=== PATIENT | male | born 1975 | race Hispanic/Latino ===

== ENCOUNTER 2021-08-21 09:33 | Emergency (ER) | payer OTHER ==
[~2021-08-21] VITALS: Ht 180.3 cm; Wt 88.1 kg
[2021-08-21 12:08] LABS: BASO # 0.1 10^3/uL (0.0-0.2); BASO % 1.5 % (0.0-1.0); EOS # 0.2 10^3/uL (0.0-0.5); EOS % 3.4 % (0.0-3.0); HEMATOCRIT 46.9 % (42.0-52.0); HEMOGLOBIN 15.8 g/dl (13.5-17.5); LYMPH # 2.3 10^3/uL (1.5-5.0); MEAN CORPUSCULAR HEMOGLOBIN 30.9 pg (27.0-33.0); MEAN CORPUSCULAR HGB CONC 33.7 g/dl (32.0-36.5); MEAN CORPUSCULAR VOLUME 91.6 fl (80.0-96.0); MONO # 0.5 10^3/uL (0.0-0.8); MONO % 7.6 % (2.0-8.0); NEUTROPHILS # 3.6 10^3/uL (1.5-8.5); NEUTROPHILS % 53.4 % (36.0-66.0); PLATELET COUNT, AUTOMATED 273 10^3/uL (150-450); RED BLOOD COUNT 5.12 10^6/uL (4.30-6.10); WHITE BLOOD COUNT 6.7 10^3/uL (4.0-10.0)
[2021-08-21 12:35] LABS: BLOOD UREA NITROGEN 10 MG/DL (7-18); CALCIUM LEVEL 9.7 MG/DL (8.5-10.1); CARBON DIOXIDE LEVEL 33 MEQ/L (21-32); CHLORIDE LEVEL 104 MEQ/L (98-107); GLOMERULAR FILTRATION RATE > 60.0 (>60); GLUCOSE, FASTING 94 MG/DL (70-100); POTASSIUM SERUM 4.2 MEQ/L (3.5-5.1); SODIUM LEVEL 139 MEQ/L (136-145)
[2021-08-21 12:36] LABS: CK-MB VALUE MASS < 1.0 NG/ML (<3.6); CPK CREATINE PHOSPHOKINASE 75 U/L (39-308); MB/CK RELATIVE INDEX 1.33 (< OR =4); TROPONIN I < 0.02 NG/ML (< 0.10)
[2021-08-21] MEDS ORDERED: NITROGLYCERIN 0.4 MG SUBL TABLET SL STA (15:22)
[2021-08-21] MEDS ORDERED: ISOVUE-370 76% 100ML VIAL As Ordered ONE (15:26)
--- NOTE | 2021-08-21 15:45 | REP ---
INDICATION: chest pain COMPARISON: None. TECHNIQUE: Portable AP view of the chest FINDINGS: The mediastinum and cardiac silhouette are stable and within normal limits for portable technique. The lung saenz are clear without acute consolidation, effusion, or pneumothorax. Skeletal structures are intact. IMPRESSION: No acute cardiopulmonary process appreciated. <Electronically signed by Mulugeta Joseph > 08/21/21 [id number]
[2021-08-21 15:46] VITALS: BP 167/90
[2021-08-21 16:22] LABS: CK-MB VALUE MASS < 1.0 NG/ML (<3.6); CPK CREATINE PHOSPHOKINASE 72 U/L (39-308); MB/CK RELATIVE INDEX 1.39 (< OR =4); TROPONIN I < 0.02 NG/ML (< 0.10)
--- NOTE | 2021-08-21 16:25 | REP ---
INDICATION: chest pain; r/o TAA COMPARISON: None. TECHNIQUE: Axial contrast enhanced images from the thoracic inlet to the upper abdomen using aortic angiographic technique with multiplanar re-formations. 100 ml Isovue 370 intravenous contrast material administered without complication. 3D volume rendered CT aortogram obtained from raw data. This CT examination was performed using the following dose reduction techniques: Automated exposure control, adjustment of mA and/or kv according to the patient's size, and use of iterative reconstruction technique. FINDINGS: Thoracic aorta is normal in appearance and caliber. There is no evidence for aneurysm or dissection. No significant atherosclerotic changes are identified as well. Heart is normal and without cardiomegaly or pericardial effusion. Pulmonary vasculature appears normal. Bilateral lung saenz are clear with minimal posterobasilar dependent changes suggested and no significant consolidation, atelectasis, or effusion. No pneumothorax. Tracheobronchial tree is patent. No axillary, hilar, or mediastinal adenopathy. Surrounding musculoskeletal structures are intact. IMPRESSION: 1. Normal thoracic aorta. 2. No acute mediastinal or pleuroparenchymal process. <Electronically signed by Mulugeta Joseph > 08/21/21 [id number]
[2021-08-21 17:15] VITALS: BP 137/83
--- NOTE | 2021-08-22 08:04 | ECGEPIP ---
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
--- NOTE | 2021-08-22 08:09 | ECGEPIP ---
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
== END 2021-08-21 17:32 | disposition home or self-care (01) ==
LOC: M ED 09:33
DX: R07.9 Chest pain, unspecified (principal); I45.10 Unspecified right bundle-branch block; F17.200 Nicotine dependence, unspecified, uncomplicated; Z88.6 Allergy status to analgesic agent
CPT/HCPCS: 36415; 71045; 71275; 80048; 82550; 82553; 84484; 85025; 85652; 86140; 93005; 99284; Q9967

== ENCOUNTER 2021-08-24 18:44 | Emergency (ER) | payer OTHER ==
[~2021-08-24] VITALS: Ht 180.3 cm; Wt 90.1 kg
[2021-08-24] MEDS ORDERED: PROAAER10 INH (18:53)
[2021-08-24] MEDS ORDERED: OXYC-517 PO (18:53)
[2021-08-24] MEDS ORDERED: MORP1CAP46 PO (18:53)
[2021-08-24 19:27] LABS: BASO # 0.1 10^3/uL (0.0-0.2); EOS # 0.5 10^3/uL (0.0-0.5); EOS % 5.7 % (0.0-3.0); HEMOGLOBIN 14.3 g/dl (13.5-17.5); LYMPH # 1.4 10^3/uL (1.5-5.0); LYMPH % 15.3 % (24.0-44.0); MEAN CORPUSCULAR HEMOGLOBIN 30.9 pg (27.0-33.0); MEAN CORPUSCULAR VOLUME 90.7 fl (80.0-96.0); MONO # 0.8 10^3/uL (0.0-0.8); MONO % 8.3 % (2.0-8.0); NEUTROPHILS # 6.5 10^3/uL (1.5-8.5); NEUTROPHILS % 69.5 % (36.0-66.0); PLATELET COUNT, AUTOMATED 223 10^3/uL (150-450); RED BLOOD COUNT 4.63 10^6/uL (4.30-6.10); WHITE BLOOD COUNT 9.3 10^3/uL (4.0-10.0)
--- NOTE | 2021-08-24 19:48 | ECGEPIP ---
[facility] - ED Test Date: 2021-08-24 Pat Name: MARI DOW Department: Room: - Gender: Male Aba Tutor: : 1975 Requested By: Massiel Dobbins Order Number: [id number] Reading MD: Massiel Dobbins Measurements Intervals [place] Rate: 84 P: 43 MN: 126 QRS: 53 QRSD: 108 T: 47 QT: 362 QTc: 427 Interpretive Statements Normal sinus rhythm Incomplete right bundle branch block Nonspecific ST T wave changes cw 08/21/[address] T wave changes Electronically Signed on 08-24-2021 19:48:17 EST by Massiel Dobbins
[2021-08-24 19:51] LABS: ALBUMIN 4.3 GM/DL (3.2-5.2); ALT/SGPT 28 U/L (12-78); BILIRUBIN,DIRECT 0.1 MG/DL (0.0-0.2); BILIRUBIN,TOTAL 0.6 MG/DL (0.2-1.0); BLOOD UREA NITROGEN 6 MG/DL (7-18); CALCIUM LEVEL 9.4 MG/DL (8.5-10.1); CARBON DIOXIDE LEVEL 30 MEQ/L (21-32); CHLORIDE LEVEL 106 MEQ/L (98-107); CREATININE FOR GFR 0.92 MG/DL (0.70-1.30); GLOMERULAR FILTRATION RATE > 60.0 (>60); GLUCOSE, FASTING 89 MG/DL (70-100); POTASSIUM SERUM 3.7 MEQ/L (3.5-5.1); SODIUM LEVEL 141 MEQ/L (136-145); TOTAL PROTEIN 7.8 GM/DL (6.4-8.2)
[2021-08-24 19:54] LABS: CK-MB VALUE MASS < 1.0 NG/ML (<3.6); CPK CREATINE PHOSPHOKINASE 89 U/L (39-308); MB/CK RELATIVE INDEX 1.12 (< OR =4); TROPONIN I < 0.02 NG/ML (< 0.10)
[2021-08-24] MEDS ORDERED: COMBIVENT RESPIMAT 100-20MCG INHALER 4GM INH SCH (20:00)
[2021-08-24] MEDS ORDERED: ONDANSETRON 4MG/2ML VIAL IV ONE (23:05)
[2021-08-24] MEDS ORDERED: MORPHINE 2 MG/ML 1ML VIAL (J2270) IV ONE (23:05)
[2021-08-24] MEDS ORDERED: NITROGLYCERIN 0.4 MG SUBL TABLET SL PRN (23:10)
[2021-08-24] MEDS ORDERED: ISOVUE-370 76% 100ML VIAL As Ordered ONE (23:12)
[2021-08-24 23:57] VITALS: BP 155/81
[2021-08-25] LABS: CK-MB VALUE MASS < 1.0 NG/ML (<3.6); CPK CREATINE PHOSPHOKINASE 94 U/L (39-308); MB/CK RELATIVE INDEX 1.06 (< OR =4); TROPONIN I < 0.02 NG/ML (< 0.10)
[2021-08-25 00:03] LABS: RSV AMPLIFICATION NEGATIVE (NEGATIVE)
--- NOTE | 2021-08-25 00:38 | REPVR ---
PROCEDURE INFORMATION: Exam: CTA Chest With Contrast Exam date and time: 08/24/2021 11:40 PM Age: 46 years old Clinical indication: Other: R/O pe; Additional info: Rule out pe TECHNIQUE: Imaging protocol: Computed tomographic angiography of the chest with contrast. 3D rendering (Not supervised by radiologist): MIP and/or 3D reconstructed images were created by the technologist. Radiation optimization: All CT scans at this facility use at least one of these dose optimization techniques: automated exposure control; mA and/or kV adjustment per patient size (includes targeted exams where dose is matched to clinical indication); or iterative reconstruction. Contrast material: ISOVUE 370; Contrast volume: 75 ml; Contrast route: INTRAVENOUS (IV); COMPARISON: CT ANGIO CHEST 08/21/2021 4:01 PM FINDINGS: Pulmonary arteries: Central pulmonary arteries show no intraluminal defect suggestive of clot. Pulmonary vascular/interstitial pattern does not suggest active pulmonary edema. Aorta: No thoracic aortic aneurysm or dissection. Lungs: Ground-glass opacities are seen within the lingula, left upper lobe and right middle lobe anteriorly. No confluent airspace filling process or lung mass. Pleural spaces: No pleural effusion or pneumothorax. Heart: Peripheral pulmonary artery evaluation limited by cardiac and respiratory motion artifact. No overt cardiac enlargement or abnormal volume of pericardial fluid. Mediastinal space: Residual thymic tissue is present in the anterior mediastinum. Lymph nodes: Small, nonspecific mediastinal nodes are present. Diaphragm: Small hiatal hernia is present. Bones/joints: Bony structures show no acute fracture or destructive process. Soft tissues: No asymmetric abnormality of the extrathoracic soft tissues. IMPRESSION: 1. No evidence of acute, central pulmonary embolus. Peripheral pulmonary arterial evaluation is limited by cardiac and respiratory motion artifact. 2. Patchy multi lobar ground-glass opacities in the lungs suggesting mild multifocal infection such as COVID-19 pneumonia Electronically signed by: Joshua Pandey On 08/25/2021 00:37:20 AM
[2021-08-25] MEDS ORDERED: KETOROLAC 30 MG/ML 1ML VIAL IV ONE (00:55)
[2021-08-25] MEDS ORDERED: ALBUTEROL SULFATE 2.5 MG/0.5 ML INH NEB SOLN NEB ONE ×2 (01:00→01:10)
[2021-08-25] MEDS ORDERED: KETO10TAB PO (01:05)
[2021-08-25] MEDS ORDERED: ALBU83IN INH (01:05)
--- OUTSIDE RECORDS SUMMARY | 2021-08-25 02:02 | CCD ---
Author Author [facility] Organization [facility] Address Unknown Phone Unavailable Support Name Relationship Address Phone [employer] [address] [facility] [address] Next Of Kin [facility] [address] [place] [address] Unavailable LORNA TABOR Next Of Kin [address] [place] [address] RET Next Of Kin RETIRED Unknown Unavailable NAG Next Of Kin [address] [place] [address] Unavailable KRISTAN TABOR Next Of Kin [address] [facility] [address] [place] [address] UN Next Of Kin Unknown Unavailable BRADFORD ERINMEENA Next Of Kin [address] [place] [address] ANTELMO ROBEGEOVANI Next Of Kin [address] [facility] [address] [place] [address] Shantelle Tabor Next Of Kin [address] [place], [place] [id number] Re-disclosure Warning The records that you are about to access may contain information from federally-assisted alcohol or drug abuse programs. If such information is present, then the following federally mandated warning applies: This information has been disclosed to you from records protected by federal confidentiality rules (42 CFR part 2). The federal rules prohibit you from making any further disclosure of this information unless further disclosure is expressly permitted by the written consent of the person to whom it pertains or as otherwise permitted by 42 CFR part 2. A general authorization for the release of medical or other information is NOT sufficient for this purpose. The Federal rules restrict any use of the information to criminally investigate or prosecute any alcohol or drug abuse patient.The records that you are about to access may contain highly sensitive health information, the redisclosure of which is protected by Article 27-F of the [place] State Public Health law. If you continue you may have access to information: Regarding HIV / AIDS; Provided by facilities licensed or operated by the [facility] Office of Mental Health; or Provided by the [facility] Office for People With Developmental Disabilities. If such information is present, then the following [facility] mandated warning applies: This information has been disclosed to you from confidential records which are protected by state law. State law prohibits you from making any further disclosure of this information without the specific written consent of the person to whom it pertains, or as otherwise permitted by law. Any unauthorized further disclosure in violation of state law may result in a fine or fpc sentence or both. A general authorization for the release of medical or other information is NOT sufficient authorization for further disc losure. Family History Family Member Name Family Member Gender Family Member Status Date o f Status Description Data Source(s) Unknown Condition [facility] Unknown Unknown Problem [facility] ([facility] Immunizations Vaccine Date Status Description Data Source(s) COVID-19 VACCINE Arnold 08/06/2021 12:00:00 AM EDT completed [facility] Vaccine Series Complete: YESThis Data wa s Submitted to [facility] Via [employer]. Medications No Information Insurance Providers Payer name Policy type / Coverage type Policy ID Covered green party ID Covered green party's relationship to lewis Policy Lewis Plan Information [address] [id number] SP [id number] [facility] [id number] [address] [id number] SP [id number] EAST [id number] SP [id number] [facility] [id number] SP [id number] SELF PAY FOR LIFE [id number] SP [id number] SELF PAY [facility] [id number] SP [id number] FOR LIFE [id number] SP [id number] [facility] [id number] SP [id number] DO NOT USE [id number] SP [id number] Veterans Choice Program Commercial [id number] Self [id number] EAST [id number] SP [id number] FOR LIFE [id number] SP [id number] [employer] [id number] Self [id number] [employer] [id number] Self [id number] [employer] [id number] Self [id number] [employer] [id number] Self [id number] [employer] [id number] Self Problems, Conditions, and Diagnoses No Information Surgeries/Procedures No Information Results No Information Social History No Information
[2021-08-25] MEDS: ALBUTEROL SULFATE 2.5 MG/0.5 ML INH NEB SOLN NEB ONE ×2 (02:15→02:34)
[2021-08-25 02:32] VITALS: BP 110/56
--- NOTE | 2021-08-25 06:38 | ECGEPIP ---
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
== END 2021-08-25 02:37 | disposition home or self-care (01) ==
LOC: M ED 18:44
DX: M54.59 Other low back pain (principal); R07.89 Other chest pain; J45.909 Unspecified asthma, uncomplicated; I45.19 Other right bundle-branch block; R94.31 Abnormal electrocardiogram [ECG] [EKG]; Z88.8 Allergy status to other drugs, medicaments and biological substances; Z90.49 Acquired absence of other specified parts of digestive tract; Z98.890 Other specified postprocedural states
CPT/HCPCS: 71275; 80048; 80076; 82550; 82553; 84484; 85025; 86140; 87631; 93005; 94640; 94664; 96374; 96375; 99284; J1885; J2270; J2405; Q9967

== ENCOUNTER → 2024-09-06 | Outpatient (CLI) | payer OTHER ==
[~2024-09-06] MED LIST: ALBU2.5V10 INH; ISOVUE-370 76% 100ML VIAL ONE; KETO10TAB PO; MORP1CAP46 PO; OXYC-517 PO; PROAAER10 INH
== END ==
LOC: M PLAIMG 12:54
PROVIDERS: ATTEND Physician Assistant Medical
DX: N20.0 Calculus of kidney (principal); N28.1 Cyst of kidney, acquired; K57.30 Diverticulosis of large intestine without perforation or abscess without bleeding
CPT/HCPCS: 74178; Q9967

== ENCOUNTER → 2024-09-12 | Outpatient (REF) | payer OTHER ==
[~2024-09-12] MED LIST changes: +ALBU8.5H INH; -ISOVUE-370 76% 100ML VIAL ONE; +MORP15TA2 PO
[2024-09-12 14:48] LABS: APPEARANCE, URINE CLEAR (CLEAR); BACTERIA, URINE AUTO NEGATIVE (NEGATIVE); BILIRUBIN, URINE AUTO NEGATIVE (NEGATIVE); BLOOD, URINE BLOOD 1+ (NEGATIVE); COLOR, URINE YELLOW (YELLOW); GLUCOSE, URINE (UA) AUTO NEGATIVE (NEGATIVE); KETONE, URINE AUTO NEGATIVE (NEGATIVE); LEUKOCYTE ESTERASE, URINE AUTO NEGATIVE (NEGATIVE); MUCUS, URINE SMALL (NEGATIVE); NITRITE, URINE AUTO NEGATIVE (NEGATIVE); PROTEIN, URINE AUTO NEGATIVE (NEGATIVE); RBC, URINE AUTO 20 /HPF (0-3); SPECIFIC GRAVITY URINE AUTO 1.017 (1.002-1.035); SQUAMOUS EPITHELIAL CELL UR AU 0 /HPF (0-6); UROBILINOGEN, URINE AUTO 0.2 mg/dL (0.0-2.0); WBC, URINE AUTO 2 /HPF (0-3)
== END ==
LOC: M SMT 13:04
PROVIDERS: ATTEND Nurse Practitioner Family
DX: R31.29 Other microscopic hematuria (principal)
CPT/HCPCS: 81001; 87086; 88108; G0463

== ENCOUNTER 2024-10-25 09:23 | Day surgery (SDC) | payer OTHER ==
[~2024-10-25] VITALS: Ht 177.8 cm; Wt 88.0 kg
[2024-10-25] MEDS ORDERED: MIDAZOLAM INJ 2MG/2ML VIAL As Ordered ONE (09:42)
[2024-10-25] MEDS ORDERED: fentaNYL 100 MCG/2 ML INJECTION As Ordered ONE (09:43)
[2024-10-25] MEDS ORDERED: LIDOCAINE 2% 100MG/5ML SDV (FOR ANES.) As Ordered ONE (09:43)
[2024-10-25] MEDS ORDERED: propofoL 200 MG/20 ML VIAL As Ordered ONE (09:43)
[2024-10-25] MEDS ORDERED: ONDANSETRON 4MG 2ML VIAL As Ordered ONE (09:44)
[2024-10-25] MEDS ORDERED: LR 1,000 ML IV SCH (09:50)
[2024-10-25] MEDS: ceFAZolin SOD 2 GM in IV 1 EA IV ONE (10:35)
[2024-10-25] MEDS ORDERED: FLOM0.4C39 PO (10:43)
[2024-10-25] MEDS: oxyCODONE 5MG TAB PO STA (11:45)
[2024-10-25 12:20] VITALS: BP 151/85; TEMP 97.3; O2SAT 100
== END 2024-10-25 12:30 | disposition home or self-care (01) ==
LOC: M SDC 09:23
PROVIDERS: ATTEND Urology
DX: N20.0 Calculus of kidney (principal); J45.909 Unspecified asthma, uncomplicated; M06.9 Rheumatoid arthritis, unspecified; G89.29 Other chronic pain; M54.50 Low back pain, unspecified; Z79.899 Other long term (current) drug therapy; Z79.891 Long term (current) use of opiate analgesic; Z90.49 Acquired absence of other specified parts of digestive tract; Z88.8 Allergy status to other drugs, medicaments and biological substances; F17.210 Nicotine dependence, cigarettes, uncomplicated; Z86.19 Personal history of other infectious and parasitic diseases; Z98.1 Arthrodesis status
CPT/HCPCS: 50590; 74018; J0690; J1100; J2250; J2405; J3010